=== PATIENT | female | born 2000 | race Caucasian/White ===

== ENCOUNTER 2019-07-28 22:54 | Observation (INO) | payer BC ==
[2019-07-28] MEDS ORDERED: Metoprolol Tartrate IV* 1 MG/ML 5 ML VIAL IV ONE (23:13)
[2019-07-28] MEDS ORDERED: NS 0.9% 1000 ML** 1,000 ML IV ONE ×2 (23:13→23:57)
[2019-07-28] MEDS ORDERED: Metoprolol Tartrate TAB* 50 mg PO ONE (23:14)
--- NOTE | 2019-07-28 23:25 | ED ---
HPI Cardiac - HPI Summary HPI Summary: 18 y/o female presented to [facility] for a cardiac complaint present since consumption of marijuana at 2100. Pt ate an edible at this time and then began to "feel [her] heart beating" as well as experience intermittent "rushes." Pt complains of palpitations, trouble breathing, and nausea. No vomiting. She notes that she has eaten edibles before but has never felt like this afterward. Pt denies substance use and states that she drinks alcohol but has not tonight. She denies allergies to medication and does not have her menstrual period due to Nexplanon implant. Medications: Sertraline PMHx: Tetrology of Fallot, arrhythmia in which heart skips a beat PSHx: 3 surgeries related to Tetralogy of Fallot, including a valve replacement when she was in 7th grade - History of Current Complaint Chief Complaint: EDDysrhythmPalp Stated Complaint: OD PER EMS Time Seen by Provider: 07/28/19 23:00 Hx Obtained From: Patient Onset/Duration: Started Hours Ago Timing: Intermittent Current Severity: None Pain Intensity: 0 Pain Scale Used: 0-10 Numeric Character: Fast Associated Signs and Symptoms: Positive: Other: - positive - "rushes"; negative - dyspnea. Negative: Shortness of Breath, Palpitations, Vomiting - Allergy/Home Medications Allergies/Adverse Reactions: Allergies Allergy/AdvReac Type Severity Reaction Status Date / Time No Known Allergies Allergy Verified 07/28/19 23:45 Home Medications: Home Medications Sertraline* [Zoloft*] 50 mg PO DAILY 07/28/19 [History Confirmed 07/28/19] PMH/Surg Hx/FS Hx/Imm Hx Sensory History: Denies: Hx Legally Blind, Hx Deafness Opthamlomology History: Denies: Hx Legally Blind EENT History: Denies: Hx Deafness Infectious Disease History: No Infectious Disease History: Denies: Traveled Outside the [place] in Last 30 Days - Family History Known Family History: Negative: Hypertension, Diabetes - Social History Alcohol Use: Occasionally Substance Use Type: Reports: Marijuana Smoking Status (MU): Never Smoked Tobacco - Additional Comments History Additional Comments: PMHx: Tetrology of Fallot arrhythmia in which heart skips a beat PSHx: 3 surgeries related to Tetralogy of Fallot, including a valve replacement when she was in 7th grade Review of Systems - ROS Summary Review of Systems Summary: Medications: Sertraline Positive: Other - "feels heart beating" and intermittent "rushes". Negative: Palpitations Negative: Shortness Of Breath, Other - dysnpea Negative: Vomiting All Other Systems Reviewed And Are Negative: Yes Physical Exam - Summary Physical Exam Summary: General: Well-developed, Well-nourished (FEMALE). In mild discomfort at rest HEENT: Normocephalic, Atraumatic. Eyes: Conjuctiva normal, PERRL. Oropharynx: Clear, mucous membranes moist, (-) exudates. Neck: Soft, FROM, (-) lymphadenopathy, (-) thyromegaly, (-) JVD. Cardiovascular: Normal sinus rhythm, heart beating hard and fast, (-) murmur. Lungs: Clear to auscultation bilaterally (-) wheezes, (-) rales, (-) rhonchi. Abdomen: Soft, non-tender, non-distended, (-) organomegaly, normal bowel sounds. Back: (-) CVA tenderness Extremities: No edema. Skin: Warm, dry, (-) rash. Neuro: Alert and oriented x3, no focal deficits. Psychiatric: Moderately anxious appearing Triage Information Reviewed: Yes Vital Signs On Initial Exam: Initial Vitals Temp Pulse Resp BP Pulse Ox 98.3 F 157 24 123/74 100 07/28/19 22:55 07/28/19 22:55 07/28/19 22:55 07/28/19 22:55 07/28/19 22:55 Vital Signs Reviewed: Yes Procedures - Sedation Patient Received Moderate/Deep Sedation with Procedure: No Diagnostics - Vital Signs Vital Signs Temp Pulse Resp BP Pulse Ox 07/28/19 22:55 98.3 F 157 24 123/74 100 - Laboratory Result Diagrams: 07/28/19 23:24 07/28/19 23:24 Lab Statement: Any lab studies that have been ordered have been reviewed, and results considered in the medical decision making process. - Radiology cxr Radiology Interpretation Completed By: ED Physician Summary of Radiographic Findings: No infiltrate. No pleural effusion. This x- ray was reviewed and interpreted by Dr. Menendez pending official read. - EKG 2309 Cardiac Rate: Tachycardia EKG Rhythm: Sinus Tachycardia Summary of EKG Findings: EKG at 2309 reveals sinus tachycardia with rate of 144 BPM, no acute changes, no ischemic changes. No STEMI. This EKG was reviewed and interpreted by Dr. Menendez. 0537 Cardiac Rate: NL EKG Rhythm: Sinus Rhythm Summary of EKG Findings: EKG at 0537 reveals normal sinus rhythm with rate of 86 BPM, no acute changes, no ischemic changes. RBBB. No STEMI. This EKG was reviewed and interpreted by Dr. Menendez. Re-Evaluation - Re-Evaluation First Eval Re-Evaluation Time: 02:46 Comment: Labs show Troponin at 0.03. Going to monitor keep giving fluids, then test Troponin again Second Eval Re-Evaluation Time: 05:33 Comment: Pt is feeling better. She sees a doctor at [facility] in cardiology. She has recently switched cardiologists and has not seen her new one. Will repeat EKG. Disposition - Course Course Of Treatment: 18-year-old female presents by ambulance with chest tightness, pressure, palpitations. Started after having had an edible marijuana. Prior to that she was feeling well. Patient is very agitated and anxious upon arrival. Appears to be in significant discomfort. Elevated heart rate. Elevated blood pressure. Patient has a history of tetralogy of flow. It isn't infected. Valve surgery given seventh grade. No other significant findings on physical exam. Workup demonstrates hypokalemia. Lactic acid over 5. Initial troponin 0. Second and third troponins 0.03. Initial EKG had significant ST depressions with her right bundle branch block. No previous notes, labs, EKGs in our system. Repeat EKG shows less ST depression. Patient denies any other drug use. Her urine drug screen shows only marijuana. Discussed with cardiology on-call. Dr. Faria initially thought she could go home as she was feeling better. But as we discussed her history of tetralogy of flow he thought discussing it with her digital editor would be a better idea. Unfortunately patient has recently switched cardiologists and has not started with her new one yet. Patient still states she is feeling quite a bit better but not back to normal. Still describes some pressure in her left chest. Patient is referred to the hospitalist for admission. Pt was given 5mg IV Lopressor, 50mg PO Lopressor, 20meq IV KCl, and 2L IV NaCl. - Diagnoses Provider Diagnoses: Palpitations, Elevated troponin - Physician Notifications Discussed Care Of Patient With: Augustine D Brand Time Discussed With Above Provider: 05:29 Instructed by Provider To: Other - Pt case was discussed with Dr. Faria, who initially suggested follow up with cardiology as outpatient, then advised to contact her digital editor for advice as they would know her better. At 0544 Pt case was discussed with Dr. Lindsay Croft, who agreed to admit the pt. Discharge ED - Sign-Out/Discharge Documenting (check all that apply): Patient Departure - admit - Discharge Plan Condition: Stable Disposition: ADMITTED TO [facility] Referrals: No Primary Care Phys,NOPCP [Primary Care Provider] - - Billing Disposition and Condition Condition: STABLE Disposition: Admitted to [facility] - Attestation Statements Document Initiated by Jeb: Yes Documenting Scribe: Phillip Fairbanks Provider For Whom Jeb is Documenting (Include Credential): Gloria Menendez MD Scribe Attestation: Phillip Watson, scribed for Gloria Menendez MD on 07/29/19 at 0639. Scribe Documentation Reviewed: Yes Provider Attestation: The documentation as recorded by the Phillip david accurately reflects the service I personally performed and the decisions made by , Gloria Menendez MD Status of Scribe Document: Viewed
[2019-07-28 23:34] LABS: ABS Basophils 0.1 10^3/ul (0-0.2); ABS Eosinophils 0.2 10^3/ul (0-0.6); ABS Lymphocytes 3.1 10^3/ul (1.0-4.8); ABS Monocytes 0.6 10^3/ul (0-0.8); ABS Neutrophils 4.2 10^3/ul (1.5-7.7); Eosinophil % 2.4 %; Hematocrit 38 % (35-47); Hemoglobin 13.5 g/dL (12.0-16.0); Lymphocyte % 37.9 %; Mean Corpuscular HGB Conc 35 g/dL (31-36); Mean Corpuscular Hemoglobin 32 pg (27-31); Mean Corpuscular Volume 92 fL (80-97); Mean Platelet Volume 7.9 fL (7.4-10.4); Nucleated Red Blood Cells % 0.1; Platelet Count 215 10^3/uL (150-450); Red Blood Count 4.18 10^6 /uL (3.70-4.87); Red Cell Distribution Width 12 % (10-15); White Blood Count 8.1 10^3/uL (3.5-10.8)
[2019-07-28 23:46] LABS: INR 1.04 (0.82-1.09)
[2019-07-28 23:51] LABS: ALT 9 U/L (7-52); AST 15 U/L (13-39); Albumin 4.2 g/dL (3.2-5.2); Albumin/Globulin Ratio 1.4 (1-3); Alkaline Phosphatase 62 U/L (34-104); BUN/Creatinine Ratio 16.3 (8-20); Blood Urea Nitrogen 13 mg/dL (6-24); CO2 Carbon Dioxide 19 mmol/L (22-32); Calcium 8.8 mg/dL (8.6-10.3); Chloride 105 mmol/L (101-111); EGFR African American 110.7 (>60); EGFR Non-African American 91.4 (>60); Glucose 137 mg/dL (70-100); Sodium 138 mmol/L (135-145); Total Protein 7.2 g/dL (6.4-8.9)
[2019-07-28 23:55] LABS: Anion Gap 14 mmol/L (2-11); Potassium 2.7 mmol/L (3.5-5.0)
[2019-07-28] MEDS ORDERED: KCL 10 MEQ/50 ML IVPREMIX* 10 MEQ/50 ML BAG IV ONE (23:57)
[2019-07-28 23:59] LABS: HCG Pregnancy < 0.60 mIU/mL
[2019-07-29 00:23] LABS: TSH (Thyroid Stimulating Horm) 1.19 mcIU/mL (0.34-5.60)
[2019-07-29 02:36] LABS: Troponin I 0.03 ng/mL (<0.03)
[2019-07-29 03:50] LABS: Urine Benzodiazepine Screen None Detected (None Detect); Urine Opiates Screen None Detected (None Detect)
[2019-07-29] MEDS ORDERED: KCL 10 MEQ/50 ML IVPREMIX* 10 MEQ/50 ML BAG IV ONE (04:09)
[2019-07-29 05:14] LABS: Erythrocyte Sed Rate 3 mm/Hr (0-19)
[2019-07-29 05:22] LABS: Troponin I 0.03 ng/mL (<0.03)
[2019-07-29] MEDS ORDERED: Acetaminophen TAB* 325 MG PO PRN (06:03)
[2019-07-29] MEDS ORDERED: Potassium Chlor TAB* 20 MEQ TAB.ER PO ONE ×2 (06:03→13:58)
[2019-07-29] MEDS ORDERED: Ondansetron INJ* 2 MG/ML VIAL IV PRN (06:03)
[2019-07-29] MEDS ORDERED: Calcium Carbonate CHEW TAB* 500 MG (TUMS) PO ONE (06:13)
[2019-07-29] MEDS ORDERED: NS 0.9% 1000 ML** 1,000 ML IV SCH (06:15)
--- NOTE | 2019-07-29 08:59 | HP ---
HISTORY AND PHYSICAL: DATE OF ADMISSION: 07/29/19 CHIEF COMPLAINT: Palpitations and chest discomfort. HISTORY OF PRESENT ILLNESS: This is a 18-year-old female with past medical history of Tetralogy of Fallot status post surgery, who now presents to the emergency room because of chest discomfort associated with palpitations. The patient took an edible, which is marijuana, and shortly thereafter developed a panic episode described as palpitations, which then led to chest discomfort, shortness of breath. She was also having some nausea and burning sensation of the chest. She decided to come to the emergency room for further evaluation and care. She reports that she has taken an edible before without any issues, however started having the current symptoms shortly after taking edible today. She reports that she has history of Tetralogy of Fallot, underwent 3 surgeries as a child as well as a teen, she follows up with a certified orthotist in [place], has changed her certified orthotist and does not know the name of the current certified orthotist. In the emergency room, the patient was seen and evaluated, was found to have elevated lactic acid, hypokalemia, and elevated troponin. The patient also had an EKG done, which showed sinus tachycardia with ST depression, subsequent EKG showed normal sinus rhythm and ST segments were resolved. Subsequently, the hospitalist service was called. In the emergency room, the patient was also given some IV fluids and 20 mEq of IV potassium. PAST MEDICAL HISTORY: 1. Tetralogy of Fallot. 2. Anxiety/depression. PAST SURGICAL HISTORY: Includes cardiac surgery for the Tetralogy of Fallot. MEDICATIONS: Home medications include sertraline 50 mg daily. ALLERGIES: Include no known drug allergies. SOCIAL HISTORY: The patient is currently living at home. She smokes marijuana on a fairly regular basis. Reports drinking alcohol 1 to 2 drinks per month. Does not smoke. FAMILY HISTORY: Mother and father do not have any medical issues as far as the patient knows. REVIEW OF SYSTEMS: The patient does not have any fevers. No chills. Does not have any sore throat. No changes in her vision or hearing. Cardiovascular: See HPI. She does not have any paroxysmal or nocturnal dyspnea. No lower extremity edema. Respiratory: She was having shortness of breath earlier, that has resolved. No cough. No sputum production. She was having nausea; however, no vomiting. No abdominal pain. No diarrhea. No constipation. No dysuria. No burning with urination. No hematuria. No joint aches or muscle aches. No headaches. No focal weakness or numbness. No changes in her mood. No thoughts of hurting herself or anyone else. PHYSICAL EXAMINATION GENERAL: This is a young female, well developed, well nourished, lying in the ER stretcher, in no acute distress. VITAL SIGNS: Blood pressure is 137/92, heart rate of 92, respiratory rate of 21 , saturation of 98% on room air, temperature of 98.3 Fahrenheit. HEENT: Pupils are equal, round, reactive to light. Atraumatic, normocephalic. Oral mucosa is moist. There is no nystagmus. LUNGS: There is no tachypnea. No use of accessory muscles. Lungs are clear without any wheezing, rales, or rhonchi. HEART: There is no chest wall tenderness. Regular rate, rhythm. There is a 3/ 6 systolic murmur heard at all of the regions. There are no rubs or gallops. ABDOMEN: Normoactive bowel sounds. Abdomen is soft, nontender, nondistended. EXTREMITIES: No lower extremity edema. Radial pulses 2+ bilaterally. There is no cyanosis, clubbing, or edema. NEUROLOGICAL: The patient is awake, alert, oriented x3. Following all commands without any focal deficits. She appears slightly anxious. LABS AND IMAGING: Sodium 138, potassium 2.7, chloride of 105, bicarb of 19, BUN of 13, creatinine of 0.80, glucose of 137. AST of 15, ALT of 9, total bilirubin of 0.50. Calcium of 8.8. Initial lactic acid of 5.1, repeat lactic acid of 1.5. TSH is 1.19. Beta-hCG is less than 0.60. Albumin of 4.2. BNP of 28. First troponin 0.00, second troponin 0.03, third troponin 0.03. The patient had a chest x-ray done, which revealed no acute cardiopulmonary disease. The patient had an EKG done. Initial EKG dated 07/28/19, heart rate of 144, sinus tachycardia with ST depressions diffusely. Second EKG was done on 07/29/19 at 5:35 in a.m., which showed sinus rhythm at a heart rate of 86 with resolution of the ST depression, there is also right bundle-branch block. IMPRESSION AND PLAN: 1. Chest discomfort with palpitations with elevated troponin: Demand ischemia caused by elevated heart rate, this has now resolved. The patient did receive metoprolol in the emergency room. 2. History of Tetralogy of Fallot: At this point, I do not think she is having acute any pathology. 3. Hypokalemia. Repletion has been ordered. She received 20 mEq in the emergency room. I have ordered another 40 mEq oral to be given. Followup BMP and a magnesium has also been ordered. 4. History of anxiety/depression: Continue sertraline. We will monitor the patient on telemetry. Additional management and plan as the hospital course progresses per the discretion of the rounding physician. [id number]/[facility] #: [id number] ILAN
[2019-07-29] MEDS ORDERED: Sertraline* 50 MG TAB PO SCH (09:00)
[2019-07-29 10:04] LABS: BUN/Creatinine Ratio 13.8 (8-20); Calcium 8.6 mg/dL (8.6-10.3); EGFR African American 160.4 (>60); EGFR Non-African American 132.5 (>60); Magnesium 1.7 mg/dL (1.9-2.7); Potassium 3.3 mmol/L (3.5-5.0)
[2019-07-29 10:06] LABS: Troponin I 0.01 ng/mL (<0.03)
[2019-07-29] MEDS ORDERED: Magnesium Sulfate IV* 3 GM in NS 0.9% 100 ML* 100 ML IVPB ONE (13:58)
--- NOTE | 2019-07-29 14:04 | PN ---
Subjective Date of Service: 07/29/19 Interval History: Ms. Calvillo denies complaint other than saying that she feels tired. She denies chest pain or SOB. Objective Active Medications: Acetaminophen (Tylenol Tab*) 650 mg PO Q6H PRN Sodium Chloride (Ns 0.9% 1000 Ml) 1,000 mls @ 100 mls/hr IV PER RATE CHADWICK Magnesium Sulfate 3 gm/ Sodium (Chloride) 106 mls @ 53 mls/hr IVPB ONCE ONE Ondansetron HCl (Zofran Inj*) 4 mg IV Q6H PRN Potassium Chloride (Klor Con Er Tab*) 40 meq PO ONCE ONE Sertraline HCl (Zoloft*) 50 mg PO DAILY CHADWICK Vital Signs: Temp Pulse Resp BP Pulse Ox 98.0 F 82 16 123/69 100 07/29/19 11:15 07/29/19 11:15 07/29/19 11:15 07/29/19 11:15 07/29/19 11:15 Oxygen Devices in Use Now: None Appearance: Female lying in bed in NAD Eyes: No Scleral Icterus Ears/Nose/Mouth/Throat: Mucous Membranes Moist Neck: Trachea Midline Respiratory: Symmetrical Chest Expansion and Respiratory Effort, Clear to Auscultation Cardiovascular: No Edema, - - systolic murmur Abdominal: NL Sounds; No Tenderness; No Distention Extremities: No Edema Skin: No Rash or Ulcers Neurological: Alert and Oriented x 3, NL Muscle Strength and Tone Result Diagrams: 07/28/19 23:24 07/29/19 09:41 Assess/Plan/Problems-Billing Assessment: Ms. Calvillo is a 18 yo F [facility] who was admitted on with concern for elevated troponin and palpitations after having an anxiety attack in the setting of taking edible marijuana product. - Patient Problems (1) Elevated troponin Comment: - Demand ischemia related to anxiety - Trops peaked at 0.03, EKG without evidence of ischemia (2) Depression Comment: - Continue sertraline (3) Electrolyte abnormality Comment: - K and Mag repleted (4) DVT prophylaxis Comment: - Early mobility (5) Full code status Status and Disposition: OBV, discharge to home
[2019-07-29 15:28] VITALS: BP 99/48
--- NOTE | 2019-07-29 20:00 | DS ---
DISCHARGE SUMMARY: DATE OF ADMISSION: 07/29/19 DATE OF DISCHARGE: 07/29/19 PRIMARY CARE PHYSICIAN: None. ATTENDING PHYSICIAN: Dr. Lisa Manzo * (dictated provided by Rebekah Decker NP). PRIMARY DIAGNOSIS: Supraventricular tachycardia in the setting of edible marijuana ingestion and palpitations with panic attacks. SECONDARY DIAGNOSES: 1. Tetralogy of Fallot. 2. Anxiety/depression. MEDICATION: At the time of discharge is sertraline 50 mg p.o. daily. HOSPITAL COURSE: Ms. Calvillo is a 18-year-old female who presented to the emergency room with a concern for chest discomfort and palpitations. She has a history of tetralogy of Fallot with multiple cardiac surgeries. The patient reported that she has taken an edible marijuana product and shortly thereafter developed a panic episode described as palpitations with chest discomfort and shortness of breath. She came to the emergency room for evaluation where she was found to have an elevated lactic acid, hypokalemia, and elevated troponin. Ms. Calvillo was admitted to the hospital. She was treated with intravenous fluid. She has had multiple troponins checked and they peaked at 0.03, repeat was 0.01. She did have lactic acid elevated to 5.1, but repeat check within 3 hours was 1.5 after hydration. She had a potassium of 2.7, which was repleted. Last check was 3.3 and subsequently she was given 40 mEq of potassium. Her magnesium was 1.7 and she was given 3 g magnesium sulfate. Ms. Calvillo is doing well. She is sitting up in the chair. She has no complaints. Again, her EKG showed no evidence of ischemia on repeat, and she has an underlying right bundle branch and left fascicular block as well. I suspected that Ms. Calvillo's mild elevation in troponin and discomfort were all related to palpitations and panic attack after eating an edible marijuana product. I recommended Ms. Calvillo that she be more careful with the ingestion of these products or avoid them altogether given her underlying history of tetralogy of Fallot. DISPOSITION: Home. DIET: Regular. ACTIVITY: As tolerated. FOLLOWUP PLANS: Please follow up with [facility] for obtaining a new primary care provider in the community. TIME SPENT: Approximately 60 minutes were spent on the discharge of this patient, more than half the time was spent with the patient at the bedside reviewing the events leading up to and during this hospitalization, performing the physical examination, and reviewing my plan of care. REBEKAH DECKER NP [id number]/[facility] #: [id number] ILAN
== END 2019-07-29 19:00 | disposition home or self-care (01) ==
LOC: ED 22:54 → MEDTELE 07-29 06:01
PROVIDERS: ADMIT Internal Medicine; ATTEND Internal Medicine
DX: I47.1 Supraventricular tachycardia (principal); Q21.3 Tetralogy of Fallot; F41.9 Anxiety disorder, unspecified; F32.9 Major depressive disorder, single episode, unspecified; F12.10 Cannabis abuse, uncomplicated; E87.8 Other disorders of electrolyte and fluid balance, not elsewhere classified; Z79.899 Other long term (current) drug therapy
CPT/HCPCS: 36415; 71045; 80048; 80053; 80307; 83605; 83735; 83880; 84443; 84484; 84702; 85025; 85379; 85610; 85652; 93005; 96365; 96366; 96367; 96375; 99285; A9270-GY; G0378; J3475; J3480; J3490